=== PATIENT | male | born 1965 | race Caucasian/White ===

== ENCOUNTER 2022-04-09 14:03 | Outpatient (CLI) | payer OTHER | END 2022-04-09 14:04 | disposition home or self-care (01) | LOC: BICRAD 14:03 | PROVIDERS: ATTEND Nurse Practitioner Family | DX: S22.41XG Multiple fractures of ribs, right side, subsequent encounter for fracture with delayed healing (principal) | CPT/HCPCS: 71046 ==

== ENCOUNTER 2022-04-09 15:47 | Outpatient (CLI) | payer OTHER | END 2022-04-09 15:48 | disposition home or self-care (01) | LOC: SCSRAD 15:47 | PROVIDERS: ATTEND Nurse Practitioner Family | DX: S22.41XG Multiple fractures of ribs, right side, subsequent encounter for fracture with delayed healing (principal) ==